=== PATIENT | male | born 1980 | race Caucasian/White ===

== ENCOUNTER 2024-10-14 23:30 | Observation (INO) | payer OTHER ==
[2024-10-15] MEDS ORDERED: LIDOCAINE HCL 2% JELLY 6 ML TP ONE (01:34)
[2024-10-15] MEDS: LIDOCAINE HCL 2% JELLY 10 ML CARTRIDGE PR ONE (01:38)
[2024-10-15 03:21] LABS: ABSOLUTE IMMATURE GRANULOCYTES 0.04 x10^3/uL (0.0-0.031); BASOPHILS # 0.05 x10^3/uL (0.01-0.08); EOSINOPHIL % 1.3 % (0.8-7.0); EOSINOPHILS # 0.16 x10^3/uL (0.04-0.54); HEMATOCRIT 48.8 % (40.1-51.0); MCHC 32.8 g/dl (32.3-36.5); MEAN CELL VOLUME 90.4 fl (79.0-92.2); MEAN PLT VOLUME 10.2 fl (9.4-12.4); MONOCYTE # 1.03 x10^3/uL (0.30-0.82); MONOCYTE % 8.4 % (5.3-12.2); PLATELET COUNT 243 x10^3/uL (163-337); RDW 12.7 % (12.1-15.9)
[2024-10-15] MEDS ORDERED: ACETAMINOPHEN INJECTION 100 ML ONE (03:23)
[2024-10-15 03:37] LABS: INR 0.97 (0.83-1.09); PROTHROMBIN TIME (PATIENT) 10.6 SEC (9.7-13.0)
[2024-10-15 03:40] LABS: ACTIVATED PTT 28.3 SECONDS (25.2-36.5)
[2024-10-15 03:44] LABS: POTASSIUM 4.4 mmol/L (3.5-5.1)
[2024-10-15 03:46] LABS: ALBUMIN 4.2 g/dl (3.4-5.0); BLOOD UREA NITROGEN 12.4 mg/dL (7-18); CALCIUM 9.5 mg/dL (8.5-10.1)
[2024-10-15 03:49] LABS: CREATININE 1.1 mg/dL (0.55-1.3)
[2024-10-15 03:51] LABS: BILIRUBIN,TOTAL 0.6 mg/dL (0.2-1); TOT PROT 7.5 g/dl (6.4-8.2)
[2024-10-15] MEDS: ACETAMINOPHEN 1000 MG/100 ML BAG IVPB ONE (04:06)
[2024-10-15] MEDS ORDERED: MORPHINE SULFATE 2 MG/ML SYRINGE IVPUSH PRN (04:11)
[2024-10-15] MEDS ORDERED: morphine SULFATE 4 MG/ML VIAL ONE (04:12)
[2024-10-15] MEDS: morphine SULFATE 4 MG/ML VIAL IVPUSH ONE (04:17)
[2024-10-15] MEDS: KETOROLAC TROMETHAMINE 30 MG/1 ML VIAL IVPUSH ONE (07:05)
[2024-10-15 08:02] VITALS: BMI 27.2
[2024-10-15] MEDS: DOCUSATE SODIUM 100 MG CAPSULE (FP) PO SCH (09:53)
[2024-10-15] MEDS: POLYETHYLENE GLYCOL (HEALTHYLAX) 3350 17 GM PACKET PO SCH (09:53)
[2024-10-15] MEDS ORDERED: KETOROLAC TROMETHAMINE 30 MG/1 ML VIAL IVPUSH PRN (10:34)
[2024-10-15] MEDS: HYDROCORTISONE 2.5% TOPICAL CREAM 30 GM TUBE TP SCH (11:23)
[2024-10-15] MEDS ORDERED: ENOXAPARIN NA (PORCINE) 40 MG/0.4 ML DISP.SYRIN SQ SCH (12:15)
[2024-10-15] MEDS: WITCH HAZEL 50% (TUCKS) 40 PAD/JAR PAD TP PRN (14:09)
[2024-10-15 21:20] VITALS: RESP 18
[2024-10-16] MEDS: ACETAMINOPHEN 1000 MG/100 ML BAG IVPB PRN (04:14)
[2024-10-16 08:32] VITALS: BP 125/65; PULSE 74; TEMP 98.1
== END 2024-10-16 12:30 | disposition home or self-care (01) ==
LOC: JER 23:30 → JERBED 10-15 04:00 → J6S 10-15 06:21
PROVIDERS: ADMIT Internal Medicine; ATTEND Internal Medicine
PROC: 3E033NZ Introduction of Analgesics, Hypnotics, Sedatives into Peripheral Vein, Percutaneous Approach (ICD-10-PCS; principal; 2024-10-15)
PROC: 3E0333Z Introduction of Anti-inflammatory into Peripheral Vein, Percutaneous Approach (ICD-10-PCS; 2024-10-15)
DX: K64.5 Perianal venous thrombosis (principal); K62.89 Other specified diseases of anus and rectum; D72.829 Elevated white blood cell count, unspecified; I10 Essential (primary) hypertension; F17.210 Nicotine dependence, cigarettes, uncomplicated
CPT/HCPCS: 36415; 80053; 85025; 85610; 85730; 86850; 86900; 86901; 96374; 96375; 96376; 99285-25; G0378; J0131